=== PATIENT | male | born 1950 | race Caucasian/White ===

== ENCOUNTER 2018-03-05 02:33 | Emergency (ER) | payer MEDICARE, OTHER ==
[~2018-03-05] VITALS: Ht 182.9 cm; Wt 133.8 kg
[~2018-03-05 02:33] MED LIST: AMARYL2 MG PO; ASPIRIN325 PO; ATORVASTATIN CA40 MG PO; COLACE100 MG PO; HYDROCODON-ACE1 EAC7 PO; LANTUS SQ; METFORMIN HCL500 MG PO; NEXIUM40 MG PO; ONDANSETRON HCL4 M2 PO; OXYCODONE HCL 55 MG PO; PERCOCET PO; SERTRALINE HCL50 MG PO; XANAX 0.5 MG0.5 MG PO; XARELTO10 MG PO
[2018-03-05 04:09] VITALS: BP 140/78
== END 2018-03-05 04:57 | disposition home or self-care (01) ==
LOC: M.ERS 02:33
DX: R04.0 Epistaxis (principal); E11.9 Type 2 diabetes mellitus without complications; Z79.4 Long term (current) use of insulin; Z96.641 Presence of right artificial hip joint; Z96.651 Presence of right artificial knee joint; Z90.49 Acquired absence of other specified parts of digestive tract; Z88.1 Allergy status to other antibiotic agents

== ENCOUNTER 2018-03-08 19:48 | Emergency (ER) | payer MEDICARE, OTHER ==
[~2018-03-08] VITALS: Ht 182.9 cm; Wt 133.8 kg
[2018-03-08 21:12] VITALS: BP 145/82
== END 2018-03-08 21:26 | disposition home or self-care (01) ==
LOC: M.ERS 19:48
DX: R04.0 Epistaxis (principal); E11.9 Type 2 diabetes mellitus without complications; Z90.49 Acquired absence of other specified parts of digestive tract; Z88.1 Allergy status to other antibiotic agents; Z88.8 Allergy status to other drugs, medicaments and biological substances; Z79.4 Long term (current) use of insulin

== ENCOUNTER → 2019-06-01 | Outpatient (CLI) | payer MEDICARE ==
[2019-05-31 14:52] LABS: ABSOLUTE BASOPHILS 0.1 thou/uL (0.0-0.2); ABSOLUTE EOSINOPHILS 0.1 thou/uL (0.0-0.7); ABSOLUTE LYMPHOCYTES 1.7 thou/uL (0.8-5.3); ABSOLUTE MONOCYTES 0.5 thou/uL (0.0-1.2); BASOPHILS 0.9 %; EOSINOPHILS 1.5 %; HEMATOCRIT 24.5 % (42.0-52.0); HEMOGLOBIN 7.3 gm/dL (14.0-18.0); LYMPHOCYTES 23.7 %; MCHC 29.7 g/dL (28.0-37.0); MCV 63.9 fL (80.0-100.0); MONOCYTES 6.6 %; MPV 6.5 fl. (7.2-11.1); NUCLEATED RBCS 0 /100WBC; PLATELET COUNT* 289 thou/uL (150-400); POLYS 67.3 %; RBC 3.83 mil/uL (4.50-6.00); RDW-CV 18.1 % (10.5-14.5); WBC 7.4 thou/uL (4.0-11.0)
[2019-05-31 15:05] LABS: CALCIUM 8.3 mg/dL (8.5-10.1); CREATININE 0.8 mg/dL (0.6-1.3); POTASSIUM 4.1 mmol/L (3.5-5.1)
[2019-05-31 15:10] LABS: ALBUMIN 3.1 g/dL (3.4-5.0); TOTAL BILIRUBIN 0.4 mg/dL (<0.1-1.0); TOTAL PROTEIN 7.1 g/dL (6.4-8.2)
[2019-05-31 15:34] LABS: ANISOCYTOSIS 1+; HYPOCHROMASIA 3+; PLATELET ESTIMATE ADEQUATE; POLYCHROMASIA Occasional
[2019-05-31 15:35] LABS: MICROCYTES 3+; OVALOCYTES Occasional
[2019-06-01 08:59] VITALS: BP 122/74; BP 127/67; BP 138/72; BP 150/80
--- NOTE | 2019-06-01 09:20 | NUR ---
ARRIVED AMBULATORY. MADE SELF COMFORTABLE IN RECLIENR. IV STARTED WITH OUT DIFFICULTY. REVIEW OF TRANSFUSION PROCESS AND POSSIBLE ADVERS REACTION. HGB FROM YESTERDAY NOTED TO 7.[address] COOL. PHONE CALL RECIEVED FROM DR. COOL STATING HE HAD SPOKEN TO DR. DALTON'S NURSE AND ONLY 1 UNIT OF PRBC WAS APPROVED. PT UPDATED. VOICED UNDERSTANDING AND AGREED. TRANSFUSION STARTED AND RUNNING WELL.
--- NOTE | 2019-06-01 11:55 | NUR ---
TRANSFUSION COMPLETED AND TOLERATED WELL. DENIES ADVERSE REACTION. DISCAHRGE INSTRUCTION REVIEWED. DENIES QUESTIONS OR NEEDS.
== END ==
LOC: M.LAB 05-31 14:33
PROVIDERS: Internal Medicine
DX: D64.9 Anemia, unspecified (principal); R53.83 Other fatigue

== ENCOUNTER 2019-10-30 18:14 | Emergency (ER) | payer MEDICARE ==
[~2019-10-30] VITALS: Ht 182.9 cm; Wt 130.6 kg
[2019-10-30] MEDS ORDERED: DORYX MPC120 MG PO (18:25)
[2019-10-30 19:21] VITALS: BP 136/66
== END 2019-10-30 19:21 | disposition home or self-care (01) ==
LOC: M.ERS 18:14
DX: R04.0 Epistaxis (principal); E11.9 Type 2 diabetes mellitus without complications; Z96.651 Presence of right artificial knee joint; Z96.641 Presence of right artificial hip joint; Z90.49 Acquired absence of other specified parts of digestive tract; Z86.2 Personal history of diseases of the blood and blood-forming organs and certain disorders involving the immune mechanism; Z79.4 Long term (current) use of insulin; Z88.1 Allergy status to other antibiotic agents; Z88.8 Allergy status to other drugs, medicaments and biological substances

== ENCOUNTER → 2019-11-02 | Outpatient (CLI) | payer MEDICARE ==
[~2019-11-02] MED LIST changes: +DORYX MPC120 MG PO
== END ==
LOC: M.ULTRA 10:26
DX: I65.23 Occlusion and stenosis of bilateral carotid arteries (principal); R42 Dizziness and giddiness

== ENCOUNTER → 2020-09-05 | Outpatient (CLI) | payer MEDICARE | LOC: M.LAB 10:55 | PROVIDERS: ATTEND Orthopaedic Surgery | DX: Z01.812 Encounter for preprocedural laboratory examination (principal); Z20.828 Contact with and (suspected) exposure to other viral communicable diseases; G56.01 Carpal tunnel syndrome, right upper limb ==

== ENCOUNTER 2020-11-08 16:37 | Inpatient (IN) | payer MEDICARE ==
[~2020-11-08] VITALS: Ht 182.9 cm; Wt 131.9 kg
[~2020-11-08 16:37] MED LIST changes: -NEXIUM40 MG PO; +OMEPRAZOLE40 MG PO
[2020-11-08 16:46] VITALS: BP 135/90
[2020-11-08] MEDS ORDERED: LEVOTHYROXINE25 MC1 PO (16:50)
[2020-11-08 17:06] LABS: ABSOLUTE BASOPHILS 0.1 thou/uL (0.0-0.2); ABSOLUTE EOSINOPHILS 0.2 thou/uL (0.0-0.7); ABSOLUTE LYMPHOCYTES 2.2 thou/uL (0.8-5.3); ABSOLUTE MONOCYTES 0.6 thou/uL (0.0-1.2); ABSOLUTE NEUTROPHILS 6.8 thou/uL (1.6-8.1); BASOPHILS 0.9 %; EOSINOPHILS 1.7 %; HEMATOCRIT 41.5 % (42.0-52.0); HEMOGLOBIN 13.9 gm/dL (14.0-18.0); LYMPHOCYTES 22.3 %; MCH 27.6 pg (26.0-34.0); MCHC 33.6 g/dL (28.0-37.0); MCV 82.4 fL (80.0-100.0); MONOCYTES 6.1 %; MPV 7.7 fl. (7.2-11.1); NUCLEATED RBCS 0 /100WBC; PLATELET COUNT* 213 thou/uL (150-400); RBC 5.04 mil/uL (4.50-6.00); RDW-CV 14.2 % (10.5-14.5); WBC 9.9 thou/uL (4.0-11.0)
[2020-11-08 17:08] LABS: CALCIUM 8.6 mg/dL (8.5-10.1); CREATININE 0.9 mg/dL (0.6-1.3)
[2020-11-08 17:13] LABS: APTT 36.7 Seconds (25.0-31.3); INR 1.1; PROTIME 11.3 Seconds (9.20-11.50)
[2020-11-08 17:22] LABS: ALBUMIN 3.7 g/dL (3.4-5.0); CK-MB MASS 3.9 ng/mL (<0.5-3.6); MAGNESIUM 1.7 mg/dL (1.8-2.4); TOTAL BILIRUBIN 0.6 mg/dL (<0.1-1.0); TOTAL PROTEIN 7.8 g/dL (6.4-8.2)
[2020-11-08 20:45] VITALS: BP 149/85
[2020-11-08 20:51] VITALS: BP 142/89
[2020-11-09] VITALS: BP 141/73
[2020-11-09 04:00] VITALS: BP 144/71
[2020-11-09 04:29] LABS: ABSOLUTE EOSINOPHILS 0.1 thou/uL (0.0-0.7); ABSOLUTE LYMPHOCYTES 2.9 thou/uL (0.8-5.3); ABSOLUTE MONOCYTES 0.6 thou/uL (0.0-1.2); ABSOLUTE NEUTROPHILS 4.9 thou/uL (1.6-8.1); BASOPHILS 0.5 %; EOSINOPHILS 1.7 %; HEMATOCRIT 37.4 % (42.0-52.0); HEMOGLOBIN 12.5 gm/dL (14.0-18.0); MCH 27.7 pg (26.0-34.0); MCHC 33.5 g/dL (28.0-37.0); MCV 82.6 fL (80.0-100.0); MONOCYTES 6.5 %; MPV 7.9 fl. (7.2-11.1); NUCLEATED RBCS 0 /100WBC; PLATELET COUNT* 180 thou/uL (150-400); POLYS 57.3 %; RBC 4.53 mil/uL (4.50-6.00); RDW-CV 13.9 % (10.5-14.5); WBC 8.6 thou/uL (4.0-11.0)
[2020-11-09 04:45] LABS: CALCIUM 8.2 mg/dL (8.5-10.1); CREATININE 0.7 mg/dL (0.6-1.3); POTASSIUM 3.8 mmol/L (3.5-5.1)
[2020-11-09 12:00] VITALS: BP 152/87
[2020-11-09 14:18] VITALS: BP 125/81
[2020-11-09 16:00] VITALS: BP 120/61
--- NOTE | 2020-11-09 17:13 | EXE ---
[place] [address] STRESS ECHOCARDIOGRAM Name: SHEELA,GARY Tre Room: [address] IN M.R.#: [id number] Admission: 11/08/20 Attend Phys: Nathaniel Valentino, Discharge: Date of : 54 Date of Service: 11/09/20 1713 Report #: [id number] THIS REPORT FOR: cc: Negar Messer MD, Lin W. MD Holkins, John M. MD [facility] ~ APPROVED REPORT Study performed: 11/09/2020 13:04:07 Exam: Dobutamine Stress Echo Indication: Chest pain , Dyspnea, abnormal EKG Patient Location: In-Patient Stress Nurse: Rochelle Kelley RN Room #: [facility] Supervising Physician: Kamran Linder MD Status: routine Ht: 6 ft 0 in HR: 51 bpm BP: 138/81 mmHg Rhythm: NSR Medical History Medications: Atorvastatin, Hydralazine, metformin Allergies: doxycylcline, Erthromycin, Levoflaxacin, Quinolones Cardiac Risk Factors: Hyperlipidemia, DM, Tobacco History (Former) Procedure The patient underwent a Pharmacological Stress Test using Dobutamine. Blood pressure, heart rate, and EKG were monitored. An Echocardiogram was performed by ammonia technician in four stages in quad fashion. At peak stress, four selected images were obtained and placed side by side with resting images for comparison. Echo Enhancing Agent Indication: Endocardial border delineation Agent(s) / Amount(s) Used: Optison 10 cc Stress Test Details Stress Test: Pharmacological Stress Test using Dobutamine. Reason for pharmacologic stress test: [place] [address] STRESS ECHOCARDIOGRAM Name: JOCELIN COKER Room: [address]#: [id number] Admission: 11/08/20 Attend Phys: Nathaniel Valentino, Discharge: Date of : 54 Date of Service: 11/09/20 1713 Report #: [id number] Resting HR: 51 bpm Max Heart Rate (APMHR): 153 bpm Max HR Achieved: 140 bpm Target HR (85% APMHR): 130 bpm % of APMHR: 91 Recovery HR: 80 bpm HR response to stress: Normal HR response to stress BP Resting BP: 138/81 mmHg Max BP: 226/61 mmHg Recovery BP: 136/51 mmHg BP response to stress: Normal blood pressure response to stress. ECG Resting ECG: Sinus rhythm, left axis deviation Stress ECG: No ischemic ST-T alterations noted Arrhythmia: Occasional isolated PVCs and rare PACs with a single atrial couplet Recovery ECG: No ischemic ST-T alterations noted Clinical Reason for Termination: Completed protocol Pre-Stress Echo The resting Echocardiogram showed normal left ventricular contractility with an estimated Ejection Fraction of about 55-60%. Normal wall motion in all segments on baseline images. Post-Stress Echo The stress Echocardiogram showed normal left ventricular contractility with an estimated Ejection Fraction of about >70%. Normal augmentation of wall motion in all segments on post stress images. Conclusion Clinical Response: Non-ischemic Stress ECG Response: Non-ischemic Stress Echo Images: Non-ischemic [place] [address] STRESS ECHOCARDIOGRAM Name: JOCELIN COKER Room: [address]#: [id number] Admission: 11/08/20 Attend Phys: Nathaniel Valentino, Discharge: Date of : 54 Date of Service: 11/09/201712 Report #: [id number] Study Quality: Technically Difficult Technically limited study due to poor endocardial definition. <ELECTRONICALLY SIGNED> By: Kamran Linder MD, FACC 11/09/201712 12 12 Kamran Linder MD, FACC /INF
--- NOTE | 2020-11-09 17:26 | EKG ---
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 : 1950 Requested By: Umberto London Order Number: [id number] Kelsea MD: Kamran Linder Measurements Intervals Arthur Rate: 66 P: -28 SD: 192 QRS: -72 QRSD: 110 T: 46 QT: 388 QTc: 407 Interpretive Statements Sinus rhythm Left anterior fascicular block Abnormal R-wave progression, late transition Compared to ECG 11/08/2020 16:43:17 Short SD interval no longer present Electronically Signed On 11-09-2020 17:26:32 SUPPLY CHAIN ASSOCIATE by Kamran Linder [email or web address] <ELECTRONICALLY SIGNED> By: Kamran Linder MD, FACC 11/09/20 1726 1645 1645 Kamran Linder MD, FACC /EPI
--- NOTE | 2020-11-09 17:26 | EKG ---
[place] [address] ELECTROCARDIOGRAM REPORT Name: JOCELIN COKER Room: [address] ADM IN M.R.#: [id number] Admission: 11/08/20 Attend Phys: Nathaniel Valentino, Discharge: Date of : 54 Date of Service: 11/08/20 1643 Report #: [id number] THIS REPORT FOR: //name// [facility] ED Test Date: 2020-11-08 Test Time: 16:43:17 Pat Name: JOCELIN SNOWNK Department: Room: 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: JOHN : 1950 Requested By: Umberto London Order Number: [id number] MD: Kamran Linder Measurements Intervals Rhodes Rate: 67 P: 0 SC: 44 QRS: -73 QRSD: 105 T: 57 QT: 383 QTc: 405 Interpretive Statements Sinus rhythm Short SC interval Left anterior fascicular block Abnormal R-wave progression, late transition Baseline wander in lead(s) V3 Compared to ECG 09/18/2016 10:08:06 Short SC interval now present T-wave abnormality no longer present Electronically Signed On 11-09-2020 17:26:24 HAY BALER by Kamran Linder [email or web address] <ELECTRONICALLY SIGNED> By: Kamran Linder MD, [facility] 11/09/20 1726 164 164 Kamran Linder MD, [facility] /EPI
[2020-11-09 20:00] VITALS: BP 158/90
[2020-11-10] VITALS: BP 145/72
[2020-11-10 04:30] VITALS: BP 142/70
[2020-11-10 08:22] VITALS: BP 132/60
[2020-11-10 08:44] VITALS: BP 132/60
== END 2020-11-10 09:42 | disposition home or self-care (01) | DRG 313 ==
LOC: M.ERS 16:37 → M.2W 17:56 → M.TBA-ER 17:56 → M.2W 20:45
PROVIDERS: Emergency Medicine; ADMIT Internal Medicine; ATTEND Internal Medicine
DX: R07.89 Other chest pain (principal); E11.9 Type 2 diabetes mellitus without complications; E03.9 Hypothyroidism, unspecified; E66.01 Morbid (severe) obesity due to excess calories; M48.061 Spinal stenosis, lumbar region without neurogenic claudication; M79.602 Pain in left arm; M79.601 Pain in right arm; M19.90 Unspecified osteoarthritis, unspecified site; I77.819 Aortic ectasia, unspecified site; Z20.828 Contact with and (suspected) exposure to other viral communicable diseases; Z96.641 Presence of right artificial hip joint; Z90.49 Acquired absence of other specified parts of digestive tract; Z88.1 Allergy status to other antibiotic agents; Z88.8 Allergy status to other drugs, medicaments and biological substances; Z68.39 Body mass index [BMI] 39.0-39.9, adult; Z79.899 Other long term (current) drug therapy

== ENCOUNTER 2021-06-01 14:02 | Emergency (ER) | payer MEDICARE ==
[~2021-06-01] VITALS: Ht 182.9 cm; Wt 133.8 kg
[~2021-06-01 14:02] MED LIST changes: +LEVOTHYROXINE25 MC1 PO
[2021-06-01] MEDS ORDERED: PERCOCET PO (18:10)
[2021-06-01 18:33] VITALS: BP 156/87
== END 2021-06-01 18:45 | disposition home or self-care (01) ==
LOC: M.ERS 14:02
DX: M79.661 Pain in right lower leg (principal); M25.561 Pain in right knee; E11.9 Type 2 diabetes mellitus without complications; Z88.1 Allergy status to other antibiotic agents; Z96.643 Presence of artificial hip joint, bilateral; Z96.651 Presence of right artificial knee joint; Z90.49 Acquired absence of other specified parts of digestive tract; Z86.2 Personal history of diseases of the blood and blood-forming organs and certain disorders involving the immune mechanism; Z79.4 Long term (current) use of insulin